=== PATIENT | male | born 1955 | race Caucasian/White ===

== ENCOUNTER 2017-08-27 11:07 | Inpatient (IN) ==
[2017-08-27 12:12] LABS: Basophils # 0.1 10*3/uL (0.0-0.2); Basophils % 0.8 % (0.0-0.8); Eosinophils # 0.2 10*3/uL (0.0-0.87); Eosinophils % 1.5 % (0.00-10.9); Hematocrit 41.1 VOL% (42.0-52.0); Hemoglobin 13.4 GM/DL (14.0-18.0); Immature Granulocytes % 0.3 %; Immature Granulocytes Absolute 0.03 #; Lymphocytes # 5.6 10*3/uL (1.4-4.0); Lymphocytes % 51.8 % (21.2-54.2); Mean Corpuscular HGB Conc 32.6 GM/DL (32-36); Mean Corpuscular Hemoglobin 29 PG (27-34); Mean Corpuscular Volume 87.4 FL (87-102); Mean Platelet Volume 10.5 FL (9.6-12.0); Monocytes # 0.7 10*3/uL (0.11-0.8); Monocytes % 6.5 % (1.7-12.7); Neutrophils # 4.2 10*3/uL (1.4-7.4); Neutrophils % 39.1 % (38.7-73.9); Platelet Count 371 T/CUMM (130-400); Red Cell Distribution Width 14.2 % (9.3-17.3); White Blood Count 10.8 T/CUMM (4-12)
[2017-08-27 12:20] LABS: INR 1.5
[2017-08-27 12:45] LABS: Alanine Aminotransferase 29 U/L (16-61); Albumin 3.5 G/DL (3.4-5.0); Alkaline Phosphatase 116 U/L (45-117); Aspartate Amino Transferase 12 U/L (0-37); Bilirubin,Total < 0.39 MG/DL (0.2-1.0); Blood Urea Nitrogen 13 MG/DL (7-18); Calcium 8.9 MG/DL (8.5-10.1); Glucose 228 MG/DL (74-106); Osmolality,Calculated 279.8 MOS/KG (273-304); Sodium 137 MMOL/L (136-145); Total Protein 7.1 G/DL (6.4-8.3); Troponin I Only < 0.015 NG/ML (0.00-0.045)
[2017-08-27 13:16] LABS: Sedimentation Rate-Westergren 40 MM/HR (0-20)
[2017-08-27 13:38] LABS: Apearance,Urine CLEAR (Clear); Bilirubin,Urine Negative (Negative); Blood, Urine Negative (Negative); Glucose,Urine (UA) >=500 mg/dL (Negative); Ketones,Urine 5 mg/dL (Negative); Mucus,Urine Occasional /LPF (Occasional); Nitrite,Urine Negative (Negative); Protein,Urine Negative; RBC,Urine <1 /HPF (0-4); Squamous Epithelial Cell,Urine Occasional /HPF (0-10); Urine Color Yellow (Yellow); Urine Specific Gravity 1.029 (1.001-1.035); Urine Urobilinogen < 2.0 EU/DL (0.2-1.0); WBC,Urine <1 /HPF (0-6)
[2017-08-27] MEDS ORDERED: PROMETHAZINE 25 MG/1 ML VIAL IM PRN (14:54)
[2017-08-27] MEDS ORDERED: diphenhydrAMINE 50 MG/1 ML VIAL IV PRN (14:54)
[2017-08-27] MEDS ORDERED: LACTATED RINGERS 500 ML IV PRN (14:54)
[2017-08-27] MEDS ORDERED: PROMETHAZINE 25 MG TABLET PO PRN (14:54)
[2017-08-27] MEDS ORDERED: ACETAMINOPHEN 325 MG TABLET PO PRN (14:54)
[2017-08-27] MEDS ORDERED: BISACODYL 5 MG TABLET PO PRN (14:54)
[2017-08-27] MEDS ORDERED: NALOXONE 0.4 MG/ML VIAL IM PRN (14:54)
[2017-08-27] MEDS ORDERED: LACTATED RINGERS 250 ML IV PRN (14:54)
[2017-08-27] MEDS ORDERED: diphenhydrAMINE 50 MG/1 ML VIAL IM PRN (14:54)
[2017-08-27] MEDS ORDERED: diphenhydrAMINE CAP 25 MG CAPSULE PO PRN (14:54)
[2017-08-27] MEDS ORDERED: MAGNESIUM HYDROXIDE SUSP 30 ML UDCUP PO PRN (14:54)
[2017-08-27] MEDS ORDERED: FAMOTIDINE 20 MG TABLET PO PRN (14:54)
[2017-08-27] MEDS: LACTATED RINGERS 1,000 ML IV SCH (15:41)
[2017-08-27] MEDS ORDERED: GLUCAGON 1 MG VIAL IM PRN (15:46)
[2017-08-27] MEDS ORDERED: DEXTROSE 50% 25 GM/50 ML VIAL IV PRN (15:46)
[2017-08-27] MEDS: VANCOMYCIN INJ 1,250 MG in SODIUM CHLORIDE 0.9% 250 ML IV SCH (16:41)
[2017-08-27] MEDS: INSULIN LISPRO 100 UNIT/ML SUBCUT SCH ×2 (16:42→21:04)
[2017-08-27] MEDS: ALBUTEROL/IPRATROPIUM 3 ML NEB RESP TX SCH (19:15)
[2017-08-27] MEDS: PANTOPRAZOLE 40 MG TABLET PO SCH (21:03)
[2017-08-27] MEDS: ATORVASTATIN 20 MG TABLET PO SCH (21:03)
[2017-08-27] MEDS: INSULIN GLARGINE 100 UNIT/ML SUBCUT SCH (21:08)
[2017-08-28] MEDS: ALBUTEROL/IPRATROPIUM 3 ML NEB RESP TX SCH ×4 (00:46→19:40)
[2017-08-28] MEDS: VANCOMYCIN INJ 1,250 MG in SODIUM CHLORIDE 0.9% 250 ML IV SCH ×2 (05:29→17:50)
[2017-08-28 05:47] LABS: Basophils # 0.1 10*3/uL (0.0-0.2); Basophils % 0.8 % (0.0-0.8); Eosinophils # 0.2 10*3/uL (0.0-0.87); Eosinophils % 1.5 % (0.00-10.9); Hematocrit 39.9 VOL% (42.0-52.0); Hemoglobin 13.5 GM/DL (14.0-18.0); Immature Granulocytes % 0.4 %; Immature Granulocytes Absolute 0.04 #; Lymphocytes # 5.9 10*3/uL (1.4-4.0); Lymphocytes % 51.6 % (21.2-54.2); Mean Corpuscular HGB Conc 33.8 GM/DL (32-36); Mean Corpuscular Hemoglobin 29 PG (27-34); Mean Platelet Volume 10.7 FL (9.6-12.0); Monocytes # 0.8 10*3/uL (0.11-0.8); Monocytes % 6.9 % (1.7-12.7); Neutrophils # 4.4 10*3/uL (1.4-7.4); Neutrophils % 38.8 % (38.7-73.9); Platelet Count 384 T/CUMM (130-400); Red Blood Count 4.64 MC/CUMM (3.8-5.5); Red Cell Distribution Width 14.5 % (9.3-17.3); White Blood Count 11.4 T/CUMM (4-12)
[2017-08-28 05:57] LABS: INR 1.3; PT Patient Result 13.9 SECS
[2017-08-28 06:06] LABS: Magnesium 1.8 MG/DL (1.8-2.4); Osmolality,Calculated 280.5 MOS/KG (273-304); Potassium 3.9 MMOL/L (3.5-5.1)
[2017-08-28] MEDS: INSULIN LISPRO 100 UNIT/ML SUBCUT SCH ×4 (08:21→21:09)
[2017-08-28] MEDS: PANTOPRAZOLE 40 MG TABLET PO SCH ×2 (08:23→21:08)
[2017-08-28] MEDS: LISINOPRIL 10 MG TABLET PO SCH (08:24)
[2017-08-28] MEDS ORDERED: ROPIVACAINE 0.5% 30 ML VIAL ONE (11:28)
[2017-08-28] MEDS ORDERED: BUPIVACAINE 0.5% 50 ML VIAL ONE (11:28)
[2017-08-28] MEDS ORDERED: BACITRACIN 50,000 UNIT VIAL ONE (11:44)
[2017-08-28] MEDS ORDERED: ONDANSETRON 4 MG/2 ML VIAL ONE (11:48)
[2017-08-28] MEDS: ONDANSETRON 4 MG/2 ML VIAL IV PRN (11:52)
[2017-08-28] MEDS ORDERED: BUPIVACAINE 0.25% 50 ML VIAL ONE (12:12)
[2017-08-28] MEDS ORDERED: PROPOFOL 200 MG/20 ML VIAL IV ONE (13:04)
[2017-08-28] MEDS ORDERED: fentaNYL 100 MCG/2 ML VIAL ONE (13:04)
[2017-08-28] MEDS ORDERED: MIDAZOLAM 2 MG/2 ML VIAL ONE (13:04)
[2017-08-28] MEDS: HYDROmorphone 2 MG/1 ML VIAL IV PRN (14:29)
[2017-08-28] MEDS: GLIMEPIRIDE 4 MG TABLET PO SCH (16:18)
[2017-08-28] MEDS: GABAPENTIN 400 MG CAPSULE PO SCH ×2 (16:20→21:08)
[2017-08-28] MEDS: LACTATED RINGERS 1,000 ML IV SCH (16:21)
[2017-08-28] MEDS: TAMSULOSIN 0.4 MG CAPSULE PO SCH (16:21)
[2017-08-28] MEDS ORDERED: DEXTROSE 50% 25 GM/50 ML VIAL IV PRN (16:31)
[2017-08-28] MEDS ORDERED: GLUCAGON 1 MG VIAL IM PRN (16:31)
[2017-08-28] MEDS: ATORVASTATIN 20 MG TABLET PO SCH (21:08)
[2017-08-28] MEDS: INSULIN GLARGINE 100 UNIT/ML SUBCUT SCH (21:09)
[2017-08-28] MEDS: DOCUSATE SODIUM 100 MG CAPSULE PO SCH (21:59)
[2017-08-29] MEDS: ALBUTEROL/IPRATROPIUM 3 ML NEB RESP TX SCH ×4 (00:35→20:15)
[2017-08-29] MEDS: VANCOMYCIN INJ 1,250 MG in SODIUM CHLORIDE 0.9% 250 ML IV SCH ×2 (04:58→17:05)
[2017-08-29 06:26] LABS: Basophils # 0.1 10*3/uL (0.0-0.2); Basophils % 0.9 % (0.0-0.8); Eosinophils # 0.2 10*3/uL (0.0-0.87); Eosinophils % 2.5 % (0.00-10.9); Hematocrit 37.4 VOL% (42.0-52.0); Hemoglobin 12.5 GM/DL (14.0-18.0); Immature Granulocytes % 0.3 %; Immature Granulocytes Absolute 0.03 #; Lymphocytes # 4.9 10*3/uL (1.4-4.0); Lymphocytes % 52.2 % (21.2-54.2); Mean Corpuscular HGB Conc 33.4 GM/DL (32-36); Mean Corpuscular Hemoglobin 29 PG (27-34); Mean Platelet Volume 10.8 FL (9.6-12.0); Monocytes # 0.8 10*3/uL (0.11-0.8); Monocytes % 8.3 % (1.7-12.7); Neutrophils # 3.3 10*3/uL (1.4-7.4); Neutrophils % 35.8 % (38.7-73.9); Platelet Count 375 T/CUMM (130-400); Red Cell Distribution Width 14.7 % (9.3-17.3); White Blood Count 9.3 T/CUMM (4-12)
[2017-08-29 06:59] LABS: Eosinophils 2 % (0-10); Lymphocytes 45 % (20-55); Platelet Estimate Normal; Segmented Neutrophils 49 % (50-85); Total Cells Counted 100
[2017-08-29 07:02] LABS: Calcium 8.6 MG/DL (8.5-10.1); Magnesium 1.8 MG/DL (1.8-2.4); Osmolality,Calculated 282.4 MOS/KG (273-304); Potassium 3.9 MMOL/L (3.5-5.1)
[2017-08-29] MEDS: DULoxetine 20 MG CAPSULE PO SCH (08:41)
[2017-08-29] MEDS: TAMSULOSIN 0.4 MG CAPSULE PO SCH (08:41)
[2017-08-29] MEDS: PANTOPRAZOLE 40 MG TABLET PO SCH ×2 (08:42→21:25)
[2017-08-29] MEDS: GLIMEPIRIDE 4 MG TABLET PO SCH (08:43)
[2017-08-29] MEDS: DOCUSATE SODIUM 100 MG CAPSULE PO SCH ×2 (08:43→21:25)
[2017-08-29] MEDS: GABAPENTIN 400 MG CAPSULE PO SCH ×3 (08:43→21:25)
[2017-08-29] MEDS: LISINOPRIL 10 MG TABLET PO SCH (08:44)
[2017-08-29] MEDS: INSULIN LISPRO 100 UNIT/ML SUBCUT SCH ×4 (08:44→21:26)
[2017-08-29] MEDS: ONDANSETRON 4 MG/2 ML VIAL IV PRN (09:51)
[2017-08-29] MEDS: LACTATED RINGERS 1,000 ML IV SCH (14:03)
[2017-08-29] MEDS: WARFARIN 7.5 MG TABLET PO SCH (18:24)
[2017-08-29] MEDS: HYDROmorphone 2 MG/1 ML VIAL IV PRN (18:28)
[2017-08-29] MEDS: ATORVASTATIN 20 MG TABLET PO SCH (21:25)
[2017-08-29] MEDS: INSULIN GLARGINE 100 UNIT/ML SUBCUT SCH (21:28)
[2017-08-29] MEDS: AZTREONAM 2,000 MG in SYRINGE 1 EACH IV SCH (21:33)
[2017-08-30] MEDS: ALBUTEROL/IPRATROPIUM 3 ML NEB RESP TX SCH ×4 (00:05→20:17)
[2017-08-30] MEDS: AZTREONAM 2,000 MG in SYRINGE 1 EACH IV SCH ×3 (04:17→18:02)
[2017-08-30 04:52] LABS: Basophils # 0.1 10*3/uL (0.0-0.2); Basophils % 0.9 % (0.0-0.8); Eosinophils # 0.3 10*3/uL (0.0-0.87); Eosinophils % 2.4 % (0.00-10.9); Hemoglobin 11.4 GM/DL (14.0-18.0); Immature Granulocytes % 0.2 %; Immature Granulocytes Absolute 0.02 #; Lymphocytes # 5.4 10*3/uL (1.4-4.0); Lymphocytes % 50.6 % (21.2-54.2); Mean Corpuscular HGB Conc 32.6 GM/DL (32-36); Mean Corpuscular Hemoglobin 29 PG (27-34); Mean Corpuscular Volume 89.1 FL (87-102); Mean Platelet Volume 10.5 FL (9.6-12.0); Monocytes # 0.9 10*3/uL (0.11-0.8); Monocytes % 8.1 % (1.7-12.7); Neutrophils % 37.8 % (38.7-73.9); Platelet Count 332 T/CUMM (130-400); Red Blood Count 3.93 MC/CUMM (3.8-5.5); Red Cell Distribution Width 14.6 % (9.3-17.3); White Blood Count 10.6 T/CUMM (4-12)
[2017-08-30 05:15] LABS: Magnesium 1.7 MG/DL (1.8-2.4); Osmolality,Calculated 282.3 MOS/KG (273-304); Potassium 3.7 MMOL/L (3.5-5.1)
[2017-08-30 05:18] LABS: Eosinophils 3 % (0-10); Giant Platelets Few; Hypochromasia 1+; Lymphocytes 52 % (20-55); Nucleated Red Blood Cells 1 (0-5); Platelet Estimate Adequate; Segmented Neutrophils 40 % (50-85); Total Cells Counted 100
[2017-08-30 05:32] LABS: INR 1.1; PT Patient Result 11.4 SECS
[2017-08-30] MEDS: VANCOMYCIN INJ 1,250 MG in SODIUM CHLORIDE 0.9% 250 ML IV SCH ×2 (07:20→11:41)
[2017-08-30] MEDS: GABAPENTIN 400 MG CAPSULE PO SCH ×3 (08:30→20:25)
[2017-08-30] MEDS: PANTOPRAZOLE 40 MG TABLET PO SCH ×2 (08:30→20:25)
[2017-08-30] MEDS: DULoxetine 20 MG CAPSULE PO SCH (08:30)
[2017-08-30] MEDS: DOCUSATE SODIUM 100 MG CAPSULE PO SCH ×2 (08:31→20:25)
[2017-08-30] MEDS: GLIMEPIRIDE 4 MG TABLET PO SCH (08:31)
[2017-08-30] MEDS: TAMSULOSIN 0.4 MG CAPSULE PO SCH (08:31)
[2017-08-30] MEDS: LISINOPRIL 10 MG TABLET PO SCH (08:31)
[2017-08-30] MEDS: INSULIN LISPRO 100 UNIT/ML SUBCUT SCH ×4 (08:31→20:26)
[2017-08-30] MEDS: CLORAZEPATE 3.75 MG TABLET PO SCH ×2 (14:20→20:25)
[2017-08-30] MEDS: WARFARIN 7.5 MG TABLET PO SCH (18:38)
[2017-08-30] MEDS: LACTATED RINGERS 1,000 ML IV SCH (19:13)
[2017-08-30] MEDS: ATORVASTATIN 20 MG TABLET PO SCH (20:25)
[2017-08-30] MEDS: INSULIN GLARGINE 100 UNIT/ML SUBCUT SCH (20:26)
[2017-08-30] MEDS: HYDROmorphone 2 MG/1 ML VIAL IV PRN (21:08)
[2017-08-31] MEDS: ALBUTEROL/IPRATROPIUM 3 ML NEB RESP TX SCH ×2 (00:50→07:42)
[2017-08-31] MEDS: AZTREONAM 2,000 MG in SYRINGE 1 EACH IV SCH ×2 (01:14→09:01)
[2017-08-31] MEDS: HYDROmorphone 2 MG/1 ML VIAL IV PRN (03:14)
[2017-08-31] MEDS: VANCOMYCIN INJ 1,250 MG in SODIUM CHLORIDE 0.9% 250 ML IV SCH (05:11)
[2017-08-31 05:31] LABS: Basophils # 0.1 10*3/uL (0.0-0.2); Eosinophils # 0.3 10*3/uL (0.0-0.87); Eosinophils % 2.9 % (0.00-10.9); Hematocrit 36.3 VOL% (42.0-52.0); Hemoglobin 11.9 GM/DL (14.0-18.0); Immature Granulocytes % 0.2 %; Immature Granulocytes Absolute 0.02 #; Lymphocytes # 5.6 10*3/uL (1.4-4.0); Lymphocytes % 52.8 % (21.2-54.2); Mean Corpuscular HGB Conc 32.8 GM/DL (32-36); Mean Corpuscular Hemoglobin 29 PG (27-34); Mean Corpuscular Volume 87.9 FL (87-102); Mean Platelet Volume 10.5 FL (9.6-12.0); Monocytes # 0.8 10*3/uL (0.11-0.8); Monocytes % 7.8 % (1.7-12.7); Neutrophils # 3.7 10*3/uL (1.4-7.4); Neutrophils % 35.3 % (38.7-73.9); Platelet Count 366 T/CUMM (130-400); Red Blood Count 4.13 MC/CUMM (3.8-5.5); Red Cell Distribution Width 14.9 % (9.3-17.3); White Blood Count 10.6 T/CUMM (4-12)
[2017-08-31 05:56] LABS: Eosinophils 3 % (0-10); Giant Platelets Few; Hypochromasia 1+; Lymphocytes 51 % (20-55); Platelet Estimate Adequate; Segmented Neutrophils 39 % (50-85); Total Cells Counted 100
[2017-08-31] MEDS: INSULIN LISPRO 100 UNIT/ML SUBCUT SCH ×2 (08:15→12:12)
[2017-08-31] MEDS: LISINOPRIL 10 MG TABLET PO SCH (08:57)
[2017-08-31] MEDS: DOCUSATE SODIUM 100 MG CAPSULE PO SCH (08:57)
[2017-08-31] MEDS: CLORAZEPATE 3.75 MG TABLET PO SCH (08:57)
[2017-08-31] MEDS: GABAPENTIN 400 MG CAPSULE PO SCH (08:57)
[2017-08-31] MEDS: DULoxetine 20 MG CAPSULE PO SCH (08:57)
[2017-08-31] MEDS: TAMSULOSIN 0.4 MG CAPSULE PO SCH (08:58)
[2017-08-31] MEDS: GLIMEPIRIDE 4 MG TABLET PO SCH (08:58)
[2017-08-31] MEDS: PANTOPRAZOLE 40 MG TABLET PO SCH (08:58)
[2017-08-31 11:44] VITALS: BP 129/76
== END 2017-08-31 14:05 | disposition home or self-care (01) | DRG 29 ==
LOC: N.ED 11:07 → N.EDINP 13:26 → N.3E 13:43
PROVIDERS: ADMIT Pain Medicine Interventional Pain Medicine; ATTEND Pain Medicine Interventional Pain Medicine

== ENCOUNTER 2018-02-28 10:44 | Inpatient (IN) ==
[2018-02-28] MEDS ORDERED: SODIUM CHLORIDE 0.9% 1,000 ML IV STA (11:27)
[2018-02-28] MEDS ORDERED: ONDANSETRON 4 MG/2 ML VIAL IV STA (11:28)
[2018-02-28] MEDS ORDERED: ONDANSETRON 4 MG/2 ML VIAL ONE (11:31)
[2018-02-28 11:52] LABS: Basophils # 0.1 10*3/uL (0.0-0.2); Basophils % 0.2 % (0.0-0.8); Hematocrit 40.8 VOL% (42.0-52.0); Hemoglobin 13.3 GM/DL (14.0-18.0); Immature Granulocytes % 1.4 %; Immature Granulocytes Absolute 0.39 #; Lymphocytes # 4.7 10*3/uL (1.4-4.0); Lymphocytes % 16.2 % (21.2-54.2); Mean Corpuscular HGB Conc 32.6 GM/DL (32-36); Mean Corpuscular Hemoglobin 28 PG (27-34); Mean Corpuscular Volume 86.6 FL (87-102); Monocytes # 2.1 10*3/uL (0.11-0.8); Monocytes % 7.3 % (1.7-12.7); NRBC # 0.05 10*3/uL; Neutrophils # 21.6 10*3/uL (1.4-7.4); Neutrophils % 74.9 % (38.7-73.9); Platelet Count 296 T/CUMM (130-400); Red Blood Count 4.71 MC/CUMM (3.8-5.5); Red Cell Distribution Width 14.7 % (9.3-17.3); White Blood Count 28.8 T/CUMM (4-12)
[2018-02-28] MEDS ORDERED: PROMETHAZINE INJ 12.5 MG in SODIUM CHLORIDE 0.9% 50 ML IV STA (12:03)
[2018-02-28] MEDS ORDERED: PROMETHAZINE 25 MG/1 ML VIAL ONE (12:03)
[2018-02-28 12:07] LABS: Lactic Acid 2.5 MMOL/L (0.4-2.0)
[2018-02-28 12:11] LABS: Band Neutrophils 4 % (0-10); Lymphocytes 15 % (20-55); Platelet Estimate Adequate; Segmented Neutrophils 77 % (50-85); Total Cells Counted 100
[2018-02-28 12:12] LABS: Hypochromasia Slight
[2018-02-28 12:13] LABS: Albumin 2.8 G/DL (3.4-5.0); Bilirubin,Total 1.2 MG/DL (0.2-1.0); Calcium 8.9 MG/DL (8.5-10.1); Osmolality,Calculated 280.2 MOS/KG (273-304); Potassium 4.1 MMOL/L (3.5-5.1); Total Protein 7.3 G/DL (6.4-8.3)
[2018-02-28 12:16] LABS: Apearance,Urine CLEAR (Clear); Bilirubin,Urine Negative (Negative); Blood, Urine Small mg/dL (Negative); Glucose,Urine (UA) >=500 mg/dL (Negative); Ketones,Urine 20 mg/dL (Negative); Mucus,Urine Occasional /LPF (Occasional); Nitrite,Urine Negative (Negative); Protein,Urine 100 MG/DL; RBC,Urine 3 /HPF (0-4); Squamous Epithelial Cell,Urine Occasional /HPF (0-10); Urine Color Yellow (Yellow); Urine Specific Gravity 1.027 (1.001-1.035); Urine Urobilinogen < 2.0 EU/DL (0.2-1.0); WBC,Urine 9 /HPF (0-6)
[2018-02-28] MEDS ORDERED: CLINDAMYCIN INJ 900 MG in PREMIX 1 EACH IV STA (14:13)
[2018-02-28] MEDS ORDERED: CLINDAMYCIN INJ 50 ML IV ONE (15:00)
[2018-02-28] MEDS ORDERED: LEVOFLOXACIN INJ 500 MG in PREMIX 1 EACH IV STA (15:02)
[2018-02-28] MEDS ORDERED: ONDANSETRON 4 MG/2 ML VIAL IV PRN (17:58)
[2018-02-28] MEDS ORDERED: DEXTROSE 50% 25 GM/50 ML VIAL IV PRN (17:58)
[2018-02-28] MEDS ORDERED: PROMETHAZINE 25 MG/1 ML VIAL IM PRN (17:58)
[2018-02-28] MEDS ORDERED: GLUCAGON 1 MG VIAL IM PRN (17:58)
[2018-02-28 19:55] LABS: INR 1.2; PT Patient Result 12.1 SECS
[2018-02-28] MEDS: TAMSULOSIN 0.4 MG CAPSULE PO SCH (20:57)
[2018-02-28] MEDS: GABAPENTIN 300 MG CAPSULE PO SCH (20:57)
[2018-02-28] MEDS: ACETAMINOPHEN 325 MG TABLET PO PRN (20:57)
[2018-02-28] MEDS: ATORVASTATIN 40 MG TABLET PO SCH (20:58)
[2018-02-28] MEDS: INSULIN LISPRO 100 UNIT/ML SUBCUT SCH (21:00)
[2018-02-28] MEDS: INSULIN GLARGINE 100 UNIT/ML SUBCUT SCH (21:00)
[2018-02-28] MEDS: LEVOFLOXACIN INJ 750 MG in PREMIX 1 EACH IV SCH (21:01)
[2018-02-28] MEDS: CLINDAMYCIN INJ 900 MG in PREMIX 1 EACH IV SCH (23:26)
[2018-03-01 06:00] LABS: Basophils # 0.1 10*3/uL (0.0-0.2); Basophils % 0.3 % (0.0-0.8); Eosinophils # 0.2 10*3/uL (0.0-0.87); Eosinophils % 0.9 % (0.00-10.9); Hematocrit 36.3 VOL% (42.0-52.0); Immature Granulocytes % 0.8 %; Immature Granulocytes Absolute 0.17 #; Lymphocytes # 3.4 10*3/uL (1.4-4.0); Lymphocytes % 15.4 % (21.2-54.2); Mean Corpuscular HGB Conc 33.1 GM/DL (32-36); Mean Corpuscular Hemoglobin 28 PG (27-34); Mean Corpuscular Volume 85.6 FL (87-102); Mean Platelet Volume 10.8 FL (9.6-12.0); Monocytes # 1.6 10*3/uL (0.11-0.8); Monocytes % 7.1 % (1.7-12.7); NRBC # 0.02 10*3/uL; Neutrophils # 16.6 10*3/uL (1.4-7.4); Neutrophils % 75.5 % (38.7-73.9); Platelet Count 275 T/CUMM (130-400); Red Blood Count 4.24 MC/CUMM (3.8-5.5); White Blood Count 21.9 T/CUMM (4-12)
[2018-03-01 06:20] LABS: Calcium 8.6 MG/DL (8.5-10.1); Osmolality,Calculated 282.5 MOS/KG (273-304)
[2018-03-01 06:26] LABS: Anisocytosis 1+; Band Neutrophils 3 % (0-10); Eosinophils 2 % (0-10); Lymphocytes 14 % (20-55); Segmented Neutrophils 77 % (50-85); Total Cells Counted 100
[2018-03-01 06:27] LABS: Platelet Estimate Normal
[2018-03-01] MEDS: CLINDAMYCIN INJ 900 MG in PREMIX 1 EACH IV SCH ×2 (07:06→17:47)
[2018-03-01] MEDS: INSULIN LISPRO 100 UNIT/ML SUBCUT SCH ×4 (08:17→20:47)
[2018-03-01] MEDS ORDERED: BUPIVACAINE 0.25% /EPI 10 ML VIAL ONE (08:37)
[2018-03-01] MEDS ORDERED: LIDOCAINE 1%/EPI INJ 20 ML VIAL ONE (08:38)
[2018-03-01] MEDS ORDERED: PROPOFOL 200 MG/20 ML VIAL IV ONE (09:28)
[2018-03-01] MEDS ORDERED: KETAMINE 500 MG/10 ML VIAL ONE (09:29)
[2018-03-01] MEDS ORDERED: ONDANSETRON 4 MG/2 ML VIAL ONE (09:29)
[2018-03-01] MEDS ORDERED: MIDAZOLAM 2 MG/2 ML VIAL ONE (09:29)
[2018-03-01] MEDS ORDERED: SODIUM CHLORIDE 0.9% 250 ML IV ONE (09:29)
[2018-03-01] MEDS ORDERED: fentaNYL 100 MCG/2 ML VIAL ONE (09:29)
[2018-03-01] MEDS: GLIMEPIRIDE 4 MG TABLET PO SCH (11:03)
[2018-03-01] MEDS: DULoxetine 20 MG CAPSULE PO SCH (11:03)
[2018-03-01] MEDS: LISINOPRIL 10 MG TABLET PO SCH (11:03)
[2018-03-01] MEDS: GABAPENTIN 300 MG CAPSULE PO SCH ×2 (11:04→20:45)
[2018-03-01] MEDS: SODIUM CHLORIDE 0.9% 1,000 ML IV SCH (18:58)
[2018-03-01] MEDS: ACETAMINOPHEN 325 MG TABLET PO PRN (20:45)
[2018-03-01] MEDS: TAMSULOSIN 0.4 MG CAPSULE PO SCH (20:45)
[2018-03-01] MEDS: INSULIN GLARGINE 100 UNIT/ML SUBCUT SCH (20:46)
[2018-03-01] MEDS: ATORVASTATIN 40 MG TABLET PO SCH (20:46)
[2018-03-01] MEDS: LEVOFLOXACIN INJ 750 MG in PREMIX 1 EACH IV SCH (20:49)
[2018-03-02] MEDS: CLINDAMYCIN INJ 900 MG in PREMIX 1 EACH IV SCH ×3 (01:17→16:38)
[2018-03-02 05:58] LABS: Basophils % 0.4 % (0.0-0.8); Eosinophils # 0.3 10*3/uL (0.0-0.87); Eosinophils % 2.6 % (0.00-10.9); Hematocrit 35.4 VOL% (42.0-52.0); Hemoglobin 11.6 GM/DL (14.0-18.0); Immature Granulocytes % 0.6 %; Immature Granulocytes Absolute 0.06 #; Lymphocytes # 2.2 10*3/uL (1.4-4.0); Mean Corpuscular HGB Conc 32.8 GM/DL (32-36); Mean Corpuscular Hemoglobin 28 PG (27-34); Mean Corpuscular Volume 85.5 FL (87-102); Mean Platelet Volume 10.9 FL (9.6-12.0); Monocytes # 0.9 10*3/uL (0.11-0.8); Monocytes % 9.3 % (1.7-12.7); NRBC # 0.05 10*3/uL; Neutrophils # 6.6 10*3/uL (1.4-7.4); Neutrophils % 65.1 % (38.7-73.9); Platelet Count 288 T/CUMM (130-400); Red Blood Count 4.14 MC/CUMM (3.8-5.5); Red Cell Distribution Width 14.8 % (9.3-17.3); White Blood Count 10.1 T/CUMM (4-12)
[2018-03-02 06:14] LABS: Calcium 8.1 MG/DL (8.5-10.1); Osmolality,Calculated 281.3 MOS/KG (273-304)
[2018-03-02] MEDS: INSULIN LISPRO 100 UNIT/ML SUBCUT SCH ×4 (07:09→21:31)
[2018-03-02] MEDS: GLIMEPIRIDE 4 MG TABLET PO SCH (08:39)
[2018-03-02] MEDS: DULoxetine 20 MG CAPSULE PO SCH (08:39)
[2018-03-02] MEDS: GABAPENTIN 300 MG CAPSULE PO SCH ×2 (08:39→20:22)
[2018-03-02] MEDS: LISINOPRIL 10 MG TABLET PO SCH (08:39)
[2018-03-02] MEDS: SODIUM CHLORIDE 0.9% 1,000 ML IV SCH (12:20)
[2018-03-02] MEDS: ACETAMINOPHEN 325 MG TABLET PO PRN (19:08)
[2018-03-02] MEDS: LEVOFLOXACIN INJ 750 MG in PREMIX 1 EACH IV SCH (20:01)
[2018-03-02] MEDS: TAMSULOSIN 0.4 MG CAPSULE PO SCH (20:22)
[2018-03-02] MEDS: ATORVASTATIN 40 MG TABLET PO SCH (20:27)
[2018-03-02] MEDS: INSULIN GLARGINE 100 UNIT/ML SUBCUT SCH (21:33)
[2018-03-03] MEDS: CLINDAMYCIN INJ 900 MG in PREMIX 1 EACH IV SCH ×2 (00:14→09:34)
[2018-03-03] MEDS: SODIUM CHLORIDE 0.9% 1,000 ML IV SCH (00:14)
[2018-03-03 05:19] LABS: Basophils # 0.1 10*3/uL (0.0-0.2); Basophils % 0.8 % (0.0-0.8); Eosinophils # 0.3 10*3/uL (0.0-0.87); Eosinophils % 4.1 % (0.00-10.9); Hemoglobin 11.6 GM/DL (14.0-18.0); Immature Granulocytes % 0.5 %; Immature Granulocytes Absolute 0.03 #; Lymphocytes % 45.3 % (21.2-54.2); Mean Corpuscular HGB Conc 32.2 GM/DL (32-36); Mean Corpuscular Hemoglobin 28 PG (27-34); Mean Corpuscular Volume 87.2 FL (87-102); Mean Platelet Volume 10.5 FL (9.6-12.0); Monocytes # 0.9 10*3/uL (0.11-0.8); Monocytes % 13.1 % (1.7-12.7); NRBC # 0.02 10*3/uL; Neutrophils # 2.4 10*3/uL (1.4-7.4); Neutrophils % 36.2 % (38.7-73.9); Platelet Count 288 T/CUMM (130-400); Red Blood Count 4.13 MC/CUMM (3.8-5.5); Red Cell Distribution Width 14.9 % (9.3-17.3); White Blood Count 6.6 T/CUMM (4-12)
[2018-03-03 05:54] LABS: Calcium 8.2 MG/DL (8.5-10.1); Osmolality,Calculated 285.1 MOS/KG (273-304); Potassium 3.8 MMOL/L (3.5-5.1)
[2018-03-03 06:04] LABS: Atypical Lymphocytes Few; Band Neutrophils 1 % (0-10); Eosinophils 6 % (0-10); Hypochromasia 1+; Lymphocytes 44 % (20-55); Nucleated Red Blood Cells 1 (0-5); Segmented Neutrophils 39 % (50-85); Total Cells Counted 100
[2018-03-03 06:05] LABS: Microcytosis Slight; Ovalocytes Slight; Platelet Estimate Normal; Target Cells Slight
[2018-03-03 07:59] VITALS: BP 131/72
[2018-03-03] MEDS: INSULIN LISPRO 100 UNIT/ML SUBCUT SCH (09:28)
[2018-03-03] MEDS: DULoxetine 20 MG CAPSULE PO SCH (09:29)
[2018-03-03] MEDS: LISINOPRIL 10 MG TABLET PO SCH (09:29)
[2018-03-03] MEDS: GABAPENTIN 300 MG CAPSULE PO SCH (09:29)
[2018-03-03] MEDS: GLIMEPIRIDE 4 MG TABLET PO SCH (09:29)
[2018-03-04] MEDS ORDERED: LEVOFLOXACIN 500 MG TABLET PO SCH (09:00)
== END 2018-03-03 11:18 | disposition home or self-care (01) | DRG 572 ==
LOC: N.ED 10:44 → N.EDINP 14:55 → N.2E 17:56
PROVIDERS: ADMIT Family Medicine; ATTEND Family Medicine

== ENCOUNTER 2019-12-26 14:49 | Inpatient (IN) ==
[2019-12-26 15:45] LABS: Basophils % 0.2 % (0.0-0.8); Hematocrit 44.9 VOL% (42.0-52.0); Hemoglobin 14.1 GM/DL (14.0-18.0); Immature Granulocytes % 0.6 %; Immature Granulocytes Absolute 0.05 #; Lymphocytes # 2.4 10*3/uL (1.4-4.0); Lymphocytes % 26.7 % (21.2-54.2); Mean Corpuscular HGB Conc 31.4 GM/DL (32-36); Mean Corpuscular Volume 88.6 FL (87-102); Mean Platelet Volume 9.8 FL (9.6-12.0); Monocytes % 5.4 % (1.7-12.7); NRBC # 0.02 10*3/uL; Neutrophils % 67.1 % (38.7-73.9); Platelet Count 316 T/CUMM (130-400); Red Blood Count 5.07 MC/CUMM (3.8-5.5); Red Cell Distribution Width 14.8 % (9.3-17.3); White Blood Count 8.9 T/CUMM (4-12)
[2019-12-26] MEDS ORDERED: LEVOFLOXACIN INJ 750 MG in PREMIX 1 EACH IV STA (16:15)
[2019-12-26 16:22] LABS: Alanine Aminotransferase 57 U/L (16-61); Albumin 2.3 G/DL (3.4-5.0); Alkaline Phosphatase 249 U/L (45-117); Aspartate Amino Transferase 78 U/L (0-37); Bilirubin,Total < 0.39 MG/DL (0.2-1.0); Blood Urea Nitrogen 20 MG/DL (7-18); Calcium 8.3 MG/DL (8.5-10.1); Estimated Glom Filtration Rate 94 ML/MIN; Ferritin 1130.9 ng/ml (26-388); Glucose 253 MG/DL (74-106); Total Protein 6.8 G/DL (6.4-8.3)
[2019-12-26] MEDS ORDERED: GLUCAGON 1 MG VIAL IM PRN (17:51)
[2019-12-26] MEDS ORDERED: DEXTROSE 10% 250 ML BAG IV PRN (17:51)
[2019-12-26] MEDS: HYDROXYCHLOROQUINE 200 MG TABLET PO SCH (21:00)
[2019-12-26] MEDS ORDERED: ZINC GLUCONATE 50 MG TABLET PO SCH (21:00)
[2019-12-26] MEDS ORDERED: ENOXAPARIN 40 MG/0.4 ML SYRINGE SUBCUT SCH (21:00)
[2019-12-26] MEDS: ACETAMINOPHEN 325 MG TABLET PO PRN (21:01)
[2019-12-26] MEDS: INSULIN LISPRO 100 UNIT/ML SUBCUT SCH (21:35)
[2019-12-26] MEDS ORDERED: ZALEPLON 5 MG CAPSULE PO PRN (21:52)
[2019-12-27 05:46] LABS: Basophils % 0.2 % (0.0-0.8); Hematocrit 45.4 VOL% (42.0-52.0); Hemoglobin 14.3 GM/DL (14.0-18.0); Immature Granulocytes % 0.5 %; Immature Granulocytes Absolute 0.05 #; Lymphocytes # 3.5 10*3/uL (1.4-4.0); Lymphocytes % 36.2 % (21.2-54.2); Mean Corpuscular HGB Conc 31.5 GM/DL (32-36); Mean Corpuscular Volume 88.5 FL (87-102); Mean Platelet Volume 10.2 FL (9.6-12.0); Monocytes % 5.6 % (1.7-12.7); NRBC # 0.03 10*3/uL; Neutrophils % 57.5 % (38.7-73.9); Platelet Count 356 T/CUMM (130-400); Red Blood Count 5.13 MC/CUMM (3.8-5.5); Red Cell Distribution Width 14.7 % (9.3-17.3); White Blood Count 9.6 T/CUMM (4-12)
[2019-12-27 05:57] LABS: INR 4.5
[2019-12-27 06:11] LABS: Alanine Aminotransferase 56 U/L (16-61); Albumin 2.1 G/DL (3.4-5.0); Alkaline Phosphatase 221 U/L (45-117); Aspartate Amino Transferase 61 U/L (0-37); Bilirubin,Total < 0.39 MG/DL (0.2-1.0); Blood Urea Nitrogen 21 MG/DL (7-18); Calcium 9.3 MG/DL (8.5-10.1); Estimated Glom Filtration Rate 105 ML/MIN; Glucose 210 MG/DL (74-106); Osmolality,Calculated 278.1 MOS/KG (273-304); Thyroid Stimulating Hormone 0.274 uIU/ml (0.358-3.74); Total Protein 7.4 G/DL (6.4-8.3)
[2019-12-27 08:59] LABS: Free T4 (Free Thyroxine) 1.6 NG/DL (0.76-1.46)
[2019-12-27] MEDS ORDERED: PANTOPRAZOLE 40 MG TABLET PO SCH (09:00)
[2019-12-27] MEDS: HYDROXYCHLOROQUINE 200 MG TABLET PO SCH ×2 (09:29→21:54)
[2019-12-27] MEDS: INSULIN LISPRO 100 UNIT/ML SUBCUT SCH ×4 (10:42→21:55)
[2019-12-27] MEDS: ONDANSETRON 4 MG/2 ML VIAL IV PRN (10:42)
[2019-12-27 15:49] LABS: ABG Base Excess 2.7 MMOL/L (-2.5-2.5); ABG HCO3 26.7 MMOL/L (20-26); ABG Oxygen Saturation 94.1 % (95-100); ABG PCO2 39.4 MM HG (35-48); ABG PH 7.442 (7.35-7.45); ABG PO2 66.5 MM HG (80-95)
[2019-12-27] MEDS ORDERED: ENOXAPARIN 40 MG/0.4 ML SYRINGE SUBCUT SCH (17:00)
[2019-12-27 18:14] LABS: Apearance,Urine CLEAR (Clear); Bilirubin,Urine Negative (Negative); Blood, Urine Negative (Negative); Glucose,Urine (UA) >=500 mg/dL (Negative); Hyaline Casts,Urine 1 /LPF (0-3); Ketones,Urine 20 mg/dL (Negative); Mucus,Urine Occasional /LPF (Occasional); Nitrite,Urine Negative (Negative); Protein,Urine 100 MG/DL; RBC,Urine 5 /HPF (0-4); Urine Color Yellow (Yellow); Urine Specific Gravity 1.032 (1.001-1.035); Urine Urobilinogen < 2.0 EU/DL (0.2-1.0); WBC,Urine 1 /HPF (0-6)
[2019-12-27] MEDS: ZINC SULFATE 220 MG CAPSULE PO SCH (18:24)
[2019-12-28] MEDS: oxyCODONE/ACETAMINOPHEN 5-325 MG TABLET PO PRN ×2 (00:06→21:32)
[2019-12-28] MEDS: ACETAMINOPHEN 325 MG TABLET PO PRN (01:10)
[2019-12-28 04:58] LABS: ABG Base Excess 1.6 MMOL/L (-2.5-2.5); ABG HCO3 25.8 MMOL/L (20-26); ABG Oxygen Saturation 96.2 % (95-100); ABG PH 7.422 (7.35-7.45); ABG PO2 77.7 MM HG (80-95); ABG TCO2 22.6 MMOL/L (23-27); Allen Test Positive; Pt O2 Delivery Device Other
[2019-12-28 05:48] LABS: Basophils % 0.1 % (0.0-0.8); Eosinophils % 0.1 % (0.00-10.9); Hematocrit 40.5 VOL% (42.0-52.0); Hemoglobin 13.1 GM/DL (14.0-18.0); Immature Granulocytes % 0.4 %; Immature Granulocytes Absolute 0.04 #; Lymphocytes # 2.6 10*3/uL (1.4-4.0); Lymphocytes % 29.3 % (21.2-54.2); Mean Corpuscular HGB Conc 32.3 GM/DL (32-36); Mean Corpuscular Volume 85.3 FL (87-102); Mean Platelet Volume 10.1 FL (9.6-12.0); Monocytes % 5.8 % (1.7-12.7); NRBC # 0.03 10*3/uL; Neutrophils % 64.3 % (38.7-73.9); Platelet Count 393 T/CUMM (130-400); Red Blood Count 4.75 MC/CUMM (3.8-5.5); Red Cell Distribution Width 14.5 % (9.3-17.3)
[2019-12-28 05:55] LABS: INR 3.8; PT Patient Result 37.8 SECS (9.8-11.9)
[2019-12-28 06:05] LABS: Alanine Aminotransferase 45 U/L (16-61); Alkaline Phosphatase 190 U/L (45-117); Aspartate Amino Transferase 48 U/L (0-37); Bilirubin,Total < 0.39 MG/DL (0.2-1.0); Blood Urea Nitrogen 22 MG/DL (7-18); Calcium 8.9 MG/DL (8.5-10.1); Estimated Glom Filtration Rate 110 ML/MIN; Glucose 197 MG/DL (74-106); Osmolality,Calculated 282.7 MOS/KG (273-304); Total Protein 7.1 G/DL (6.4-8.3)
[2019-12-28 07:55] LABS: Burr Cells Few; Hypochromasia 2+; Lymphocytes 17 % (20-55); Nucleated Red Blood Cells 1 (0-5); Platelet Estimate Normal; Polychromasia Slight; Segmented Neutrophils 82 % (50-85); Total Cells Counted 100
[2019-12-28 07:56] LABS: Ferritin 928.8 ng/ml (26-388)
[2019-12-28] MEDS: INSULIN LISPRO 100 UNIT/ML SUBCUT SCH ×4 (09:17→21:38)
[2019-12-28] MEDS: HYDROXYCHLOROQUINE 200 MG TABLET PO SCH ×2 (09:45→21:32)
[2019-12-28] MEDS: PANTOPRAZOLE 40 MG TABLET PO SCH (09:45)
[2019-12-28] MEDS: SODIUM CHLOR 0.9% KCL 20 MEQ 20 MEQ/1,000 ML BAG IV SCH (18:56)
[2019-12-29] MEDS: SODIUM CHLOR 0.9% KCL 20 MEQ 20 MEQ/1,000 ML BAG IV SCH ×3 (02:08→21:22)
[2019-12-29 05:06] LABS: Basophils % 0.2 % (0.0-0.8); Eosinophils % 0.2 % (0.00-10.9); Hematocrit 44.2 VOL% (42.0-52.0); Hemoglobin 14.2 GM/DL (14.0-18.0); Immature Granulocytes % 0.5 %; Immature Granulocytes Absolute 0.06 #; Lymphocytes # 2.6 10*3/uL (1.4-4.0); Lymphocytes % 20.8 % (21.2-54.2); Mean Corpuscular HGB Conc 32.1 GM/DL (32-36); Mean Corpuscular Volume 87.4 FL (87-102); Mean Platelet Volume 10.2 FL (9.6-12.0); Monocytes % 4.4 % (1.7-12.7); NRBC # 0.04 10*3/uL; Neutrophils % 73.9 % (38.7-73.9); Platelet Count 344 T/CUMM (130-400); Red Blood Count 5.06 MC/CUMM (3.8-5.5); Red Cell Distribution Width 14.6 % (9.3-17.3); White Blood Count 12.6 T/CUMM (4-12)
[2019-12-29 05:17] LABS: INR 3.9
[2019-12-29 05:22] LABS: Albumin 2.2 G/DL (3.4-5.0); Bilirubin,Total 0.5 MG/DL (0.2-1.0); Calcium 9.3 MG/DL (8.5-10.1); Total Protein 7.8 G/DL (6.4-8.3)
[2019-12-29] MEDS: INSULIN LISPRO 100 UNIT/ML SUBCUT SCH ×4 (08:18→21:22)
[2019-12-29] MEDS: PANTOPRAZOLE 40 MG TABLET PO SCH (08:18)
[2019-12-29] MEDS: ACETAMINOPHEN 325 MG TABLET PO PRN ×2 (08:18→16:20)
[2019-12-29] MEDS: HYDROXYCHLOROQUINE 200 MG TABLET PO SCH ×2 (08:35→21:22)
[2019-12-29] MEDS: ONDANSETRON 4 MG/2 ML VIAL IV PRN ×2 (08:55→14:43)
[2019-12-29 11:34] LABS: Atypical Lymphocytes Few; Band Neutrophils 3 % (0-10); Hypochromasia 1+; Lymphocytes 18 % (20-55); Plasma Cells 1; Platelet Estimate Normal; Polychromasia Slight; Segmented Neutrophils 71 % (50-85); Total Cells Counted 99
[2019-12-29] MEDS: ZINC SULFATE 220 MG CAPSULE PO SCH (17:25)
[2019-12-29] MEDS: oxyCODONE/ACETAMINOPHEN 5-325 MG TABLET PO PRN (21:35)
[2019-12-30] MEDS ORDERED: SODIUM CHLORIDE 0.9% 500 ML IV ONE ×2 (00:20→02:37)
[2019-12-30] MEDS: SODIUM CHLOR 0.9% KCL 20 MEQ 20 MEQ/1,000 ML BAG IV SCH ×4 (03:17→23:20)
[2019-12-30] MEDS: ACETAMINOPHEN 325 MG TABLET PO PRN (03:53)
[2019-12-30] MEDS: INSULIN LISPRO 100 UNIT/ML SUBCUT SCH ×4 (08:10→21:50)
[2019-12-30] MEDS: HYDROXYCHLOROQUINE 200 MG TABLET PO SCH ×2 (08:56→21:50)
[2019-12-30] MEDS: PANTOPRAZOLE 40 MG TABLET PO SCH (08:56)
[2019-12-30 10:09] LABS: Calcium 8.5 MG/DL (8.5-10.1); Osmolality,Calculated 290.8 MOS/KG (273-304)
[2019-12-30 10:29] LABS: Basophils % 0.2 % (0.0-0.8); Eosinophils % 0.1 % (0.00-10.9); Hematocrit 41.9 VOL% (42.0-52.0); Hemoglobin 13.4 GM/DL (14.0-18.0); Immature Granulocytes % 1.3 %; Immature Granulocytes Absolute 0.24 #; Lymphocytes # 1.8 10*3/uL (1.4-4.0); Lymphocytes % 9.3 % (21.2-54.2); Mean Corpuscular Volume 86.9 FL (87-102); Monocytes % 2.7 % (1.7-12.7); NRBC # 0.05 10*3/uL; Neutrophils % 86.4 % (38.7-73.9); Red Blood Count 4.82 MC/CUMM (3.8-5.5); Red Cell Distribution Width 15.2 % (9.3-17.3); White Blood Count 19.2 T/CUMM (4-12)
[2019-12-30 10:41] LABS: Platelet Count 102 T/CUMM (130-400)
[2019-12-30] MEDS ORDERED: ALPRAZolam 0.25 MG TABLET PO PRN (11:05)
[2019-12-30 11:09] LABS: Acanthocytes Few; Burr Cells Few; Hypochromasia 1+; Microcytosis 1+
[2019-12-30] MEDS ORDERED: SUCCINYLCHOLINE 200 MG/10 ML VIAL ONE (12:15)
[2019-12-30] MEDS ORDERED: ETOMIDATE 20 MG/10 ML VIAL IV ONE (12:15)
[2019-12-30 13:17] LABS: ABG Base Excess -8.6 MMOL/L (-2.5-2.5); ABG HCO3 17.4 MMOL/L (20-26); ABG Oxygen Saturation 90.7 % (95-100); ABG PCO2 43.4 MM HG (35-48); ABG PH 7.242 (7.35-7.45); ABG PO2 69.6 MM HG (80-95); ABG TCO2 16.8 MMOL/L (23-27)
[2019-12-30] MEDS ORDERED: MIDAZOLAM 100 MG in SODIUM CHLORIDE 0.9% 80 ML IV SCH (14:00)
[2019-12-30] MEDS: MIDAZOLAM 100 MG in SODIUM CHLORIDE 0.9% 80 ML IV PRN (14:55)
[2019-12-30] MEDS ORDERED: HEPARIN/NACL 0.9% 2 UNITS/ML 500 ML IV ONE (17:02)
[2019-12-31] MEDS: SODIUM CHLOR 0.9% KCL 20 MEQ 20 MEQ/1,000 ML BAG IV SCH (05:45)
[2019-12-31 06:13] LABS: ABG Base Excess -10.7 MMOL/L (-2.5-2.5); ABG HCO3 15.2 MMOL/L (20-26); ABG Oxygen Saturation 99.2 % (95-100); ABG PH 7.268 (7.35-7.45); ABG TCO2 16.2 MMOL/L (23-27)
[2019-12-31 06:15] LABS: Basophils % 0.2 % (0.0-0.8); Eosinophils # 0.1 10*3/uL (0.0-0.87); Eosinophils % 0.8 % (0.00-10.9); Hematocrit 37.4 VOL% (42.0-52.0); Hemoglobin 11.8 GM/DL (14.0-18.0); Immature Granulocytes % 1.3 %; Immature Granulocytes Absolute 0.23 #; Lymphocytes # 1.8 10*3/uL (1.4-4.0); Lymphocytes % 10.2 % (21.2-54.2); Mean Corpuscular HGB Conc 31.6 GM/DL (32-36); Monocytes % 3.2 % (1.7-12.7); NRBC # 0.02 10*3/uL; Neutrophils % 84.3 % (38.7-73.9); Platelet Count 155 T/CUMM (130-400); Red Cell Distribution Width 16.1 % (9.3-17.3); White Blood Count 17.6 T/CUMM (4-12)
[2019-12-31 06:34] LABS: Acanthocytes Few; Burr Cells Few; Hypochromasia 1+; Microcytosis 1+
[2019-12-31 06:35] LABS: Platelet Estimate Adequate; Target Cells Few
[2019-12-31 06:37] LABS: Albumin 1.4 G/DL (3.4-5.0); Bilirubin,Total 0.7 MG/DL (0.2-1.0); Calcium 8.3 MG/DL (8.5-10.1); Osmolality,Calculated 298.4 MOS/KG (273-304); Total Protein 5.7 G/DL (6.4-8.3)
[2019-12-31] MEDS: MIDAZOLAM 100 MG in SODIUM CHLORIDE 0.9% 80 ML IV PRN (07:16)
[2019-12-31] MEDS ORDERED: SODIUM CHLORIDE 0.9% 1,000 ML IV SCH (07:30)
[2019-12-31] MEDS: INSULIN LISPRO 100 UNIT/ML SUBCUT SCH ×4 (07:47→23:00)
[2019-12-31] MEDS: SODIUM BICARB INJ 100 MEQ in DEXTROSE 5% 1,000 ML IV SCH ×2 (09:11→20:17)
[2019-12-31] MEDS: HYDROXYCHLOROQUINE 200 MG TABLET PO SCH (09:12)
[2019-12-31] MEDS: PANTOPRAZOLE 40 MG VIAL IV SCH (09:12)
[2019-12-31] MEDS ORDERED: DIGOXIN 0.5 MG/2 ML AMP IV ONE ×2 (11:28→13:00)
[2019-12-31] MEDS: ENOXAPARIN 60 MG/0.6 ML SYRINGE SUBCUT SCH (16:03)
[2019-12-31 17:27] LABS: Hepatitis B Core IgM Quant 0.18 Index; Hepatitis B Surface Ag Quant 0.35 Index; Hepatitis B Surface Ag Result Negative (Negative); Hepatitis C Virus Ab Quant 0.08 Index; Hepatitis C Virus Ab Result Negative (Negative)
[2019-12-31] MEDS ORDERED: NOREPINEPHRINE 4 MG/4 ML VIAL IV ONE (21:22)
[2019-12-31] MEDS: NOREPINEPHRINE 8 MG in SODIUM CHLORIDE 0.9% 242 ML IV PRN (21:30)
[2020-01-01] MEDS: MIDAZOLAM 100 MG in SODIUM CHLORIDE 0.9% 80 ML IV PRN ×2 (02:45→20:15)
[2020-01-01 04:11] LABS: ABG Base Excess -9.9 MMOL/L (-2.5-2.5); ABG HCO3 16.6 MMOL/L (20-26); ABG Oxygen Saturation 97.5 % (95-100); ABG PCO2 54.7 MM HG (35-48)
[2020-01-01 04:13] LABS: Basophils % 0.2 % (0.0-0.8); Eosinophils % 0.2 % (0.00-10.9); Hematocrit 35.5 VOL% (42.0-52.0); Immature Granulocytes % 1.6 %; Immature Granulocytes Absolute 0.28 #; Lymphocytes # 1.2 10*3/uL (1.4-4.0); Lymphocytes % 6.6 % (21.2-54.2); Mean Corpuscular Volume 89.6 FL (87-102); Monocytes % 4.4 % (1.7-12.7); NRBC # 0.06 10*3/uL; Platelet Count 244 T/CUMM (130-400); Red Blood Count 3.96 MC/CUMM (3.8-5.5); Red Cell Distribution Width 16.4 % (9.3-17.3); White Blood Count 17.4 T/CUMM (4-12)
[2020-01-01 04:16] LABS: ABG PH 7.159 (7.35-7.45)
[2020-01-01 04:36] LABS: Calcium 8.7 MG/DL (8.5-10.1); Osmolality,Calculated 300.1 MOS/KG (273-304)
[2020-01-01] MEDS ORDERED: SODIUM BICARBONATE 50 MEQ/50 ML VIAL IV ONE (04:42)
[2020-01-01] MEDS: INSULIN LISPRO 100 UNIT/ML SUBCUT SCH ×4 (05:45→23:24)
[2020-01-01] MEDS: SODIUM BICARB INJ 100 MEQ in DEXTROSE 5% 1,000 ML IV SCH ×3 (05:46→17:57)
[2020-01-01] MEDS: PANTOPRAZOLE 40 MG VIAL IV SCH (08:00)
[2020-01-01] MEDS: ENOXAPARIN 60 MG/0.6 ML SYRINGE SUBCUT SCH (15:42)
[2020-01-01] MEDS: NOREPINEPHRINE 8 MG in SODIUM CHLORIDE 0.9% 242 ML IV PRN (23:00)
[2020-01-02 04:37] LABS: ABG Base Excess -5.6 MMOL/L (-2.5-2.5); ABG HCO3 21.9 MMOL/L (20-26); ABG Oxygen Saturation 94.3 % (95-100); ABG PCO2 52.3 MM HG (35-48); ABG PO2 76.5 MM HG (80-95); ABG TCO2 23.5 MMOL/L (23-27)
[2020-01-02 04:58] LABS: Basophils % 0.3 % (0.0-0.8); Eosinophils % 0.3 % (0.00-10.9); Hematocrit 31.8 VOL% (42.0-52.0); Hemoglobin 10.3 GM/DL (14.0-18.0); Immature Granulocytes % 1.2 %; Immature Granulocytes Absolute 0.17 #; Lymphocytes # 1.2 10*3/uL (1.4-4.0); Lymphocytes % 8.4 % (21.2-54.2); Mean Corpuscular HGB Conc 32.4 GM/DL (32-36); Mean Corpuscular Volume 85.3 FL (87-102); Mean Platelet Volume 12.4 FL (9.6-12.0); Monocytes % 3.2 % (1.7-12.7); NRBC # 0.16 10*3/uL; Neutrophils % 86.6 % (38.7-73.9); Platelet Count 250 T/CUMM (130-400); Red Blood Count 3.73 MC/CUMM (3.8-5.5); Red Cell Distribution Width 16.1 % (9.3-17.3); White Blood Count 14.5 T/CUMM (4-12)
[2020-01-02] MEDS: SODIUM BICARB INJ 100 MEQ in DEXTROSE 5% 1,000 ML IV SCH (05:03)
[2020-01-02] MEDS: INSULIN LISPRO 100 UNIT/ML SUBCUT SCH ×3 (05:04→17:51)
[2020-01-02 05:21] LABS: Calcium 8.3 MG/DL (8.5-10.1); Osmolality,Calculated 295.5 MOS/KG (273-304)
[2020-01-02 05:40] LABS: Band Neutrophils 7 % (0-10); Hypochromasia Slight; Lymphocytes 9 % (20-55); Microcytosis Slight; Nucleated Red Blood Cells 3 (0-5); Platelet Estimate Adequate; Segmented Neutrophils 81 % (50-85); Total Cells Counted 100
[2020-01-02] MEDS: MIDAZOLAM 100 MG in SODIUM CHLORIDE 0.9% 80 ML IV PRN ×2 (09:14→22:50)
[2020-01-02] MEDS: PANTOPRAZOLE 40 MG VIAL IV SCH (09:14)
[2020-01-02] MEDS: SODIUM BICARB INJ 100 MEQ in STERILE WATER INJ 1,000 ML IV SCH ×2 (10:45→21:44)
[2020-01-02] MEDS: ENOXAPARIN 60 MG/0.6 ML SYRINGE SUBCUT SCH (14:38)
[2020-01-03] MEDS: INSULIN LISPRO 100 UNIT/ML SUBCUT SCH ×2 (00:20→06:14)
[2020-01-03] MEDS ORDERED: DILTIAZEM 50 MG/10 ML VIAL IV ONE (00:22)
[2020-01-03] MEDS: dilTIAZem Drip 125 MG/125 ML PREMIX IV SCH ×2 (00:30→06:14)
[2020-01-03] MEDS ORDERED: METOPROLOL TARTRATE 5 MG/5 ML VIAL IV ONE ×2 (00:38→00:40)
[2020-01-03] MEDS: NOREPINEPHRINE 8 MG in SODIUM CHLORIDE 0.9% 242 ML IV PRN (01:20)
[2020-01-03 01:34] VITALS: BP 88/45
[2020-01-03 01:44] LABS: ABG Base Excess -11.7 MMOL/L (-2.5-2.5); ABG HCO3 15.2 MMOL/L (20-26); ABG Oxygen Saturation 84.1 % (95-100); ABG PO2 65.5 MM HG (80-95); ABG TCO2 21.6 MMOL/L (23-27)
[2020-01-03 01:47] LABS: ABG PCO2 88.7 MM HG (35-48); ABG PH 7.009 (7.35-7.45)
[2020-01-03] MEDS ORDERED: ROCURONIUM 500 MG in SODIUM CHLORIDE 0.9% 500 ML IV PRN (02:03)
[2020-01-03 05:27] LABS: Basophils % 0.7 % (0.0-0.8); Eosinophils % 0.2 % (0.00-10.9); Hematocrit 36.3 VOL% (42.0-52.0); Hemoglobin 11.2 GM/DL (14.0-18.0); Immature Granulocytes % 2.4 %; Immature Granulocytes Absolute 0.11 #; Lymphocytes % 21.7 % (21.2-54.2); Mean Corpuscular HGB Conc 30.9 GM/DL (32-36); Mean Corpuscular Volume 88.3 FL (87-102); Mean Platelet Volume 11.2 FL (9.6-12.0); NRBC # 0.26 10*3/uL; Platelet Count 331 T/CUMM (130-400); Red Blood Count 4.11 MC/CUMM (3.8-5.5); Red Cell Distribution Width 16.6 % (9.3-17.3); White Blood Count 4.6 T/CUMM (4-12)
[2020-01-03 06:00] LABS: ABG HCO3 13.4 MMOL/L (20-26); ABG Oxygen Saturation 79.3 % (95-100); ABG PO2 59.2 MM HG (80-95); ABG TCO2 21.4 MMOL/L (23-27)
[2020-01-03 06:01] LABS: Calcium 7.9 MG/DL (8.5-10.1); Osmolality,Calculated 289.7 MOS/KG (273-304)
[2020-01-03 06:02] LABS: ABG PH 6.932 (7.35-7.45)
[2020-01-03 07:00] LABS: Atypical Lymphocytes Few; Band Neutrophils 20 % (0-10); Hypochromasia 2+; Lymphocytes 28 % (20-55); Metamyelocytes 3 %; Microcytosis Slight; Myelocytes 2 %; Nucleated Red Blood Cells 8 (0-5); Platelet Estimate Increased; Polychromasia Slight; Segmented Neutrophils 42 % (50-85); Total Cells Counted 100
[2020-01-03] MEDS: SODIUM BICARB INJ 100 MEQ in STERILE WATER INJ 1,000 ML IV SCH (10:19)
[2020-01-03] MEDS: PANTOPRAZOLE 40 MG VIAL IV SCH (10:19)
== END 2020-01-03 07:42 | disposition expired | DRG 208 ==
LOC: EDUNIT# → EDBD → N.ED 14:49 → SUATTDRO 17:50 → N.EDINP 17:50 → N.2W 18:26 → N.ICU 12-27 15:19 → N.CC 12-31 15:45
PROVIDERS: ADMIT Internal Medicine; ATTEND Internal Medicine